=== PATIENT | female | born 1955 | race Caucasian/White ===

== ENCOUNTER 2022-05-13 13:35 | Emergency (ER) | payer BC ==
[2022-05-13] MEDS: Sodium Chloride 0.9% 1,000 ML IV SCH (13:54)
[2022-05-13 14:08] LABS: ESTIMATED GFR 41 mL/min (>60)
[2022-05-13] MEDS ORDERED: Calcium Gluconate 1 GM in Sodium Chloride 0.9% 100 ML IV ONE (14:41)
[2022-05-13] MEDS: Calcium Gluconate 1 GM in Sodium Chloride 0.9% 100 ML IV ONE (15:09)
== END 2022-05-13 18:08 | disposition home or self-care (01) ==
LOC: JP.ED 13:35
DX: R29.0 Tetany (principal); E83.51 Hypocalcemia; Z79.899 Other long term (current) drug therapy
CPT/HCPCS: 36415; 80048; 80053; 82330; 82550; 83735; 85025; 93005; 96361; 96365; 99284; J0610; J3490; J7030